=== PATIENT | female | born 1945 | race Caucasian/White ===

== ENCOUNTER → 2023-05-16 12:33 | Outpatient (REF) | payer MEDICARE, OTHER, SELFPAY ==
[2023-05-16 14:40] LABS: Hematocrit 41.7 % (37.0-47.0); Hemoglobin 14.3 g/dL (12.0-16.0); Mean Corp Hgb Conc. 34.3 g/dL (33.0-37.0); Mean Corpuscular Hgb 30.7 pg (27.0-31.0); Mean Corpuscular Volume 89.5 fL (81.0-99.0); Mean Platelet Volume 9.9 fL (7.4-10.4); Platelet Count 226 10^3/uL (130-400); Red Blood Cell Count 4.66 10^6/uL (4.20-5.40); Red Cell Dist. Width 13.4 % (11.5-14.5); White Blood Cell Count 8.4 10^3/uL (4.8-10.8)
== END ==
LOC: SDSPAT 12:33
PROVIDERS: ATTENDING PHYSICIAN Specialist; FAMILY PHYSICIAN Family Medicine; OTHER PHYSICIAN Internal Medicine Cardiovascular Disease
DX: Z01.818 Encounter for other preprocedural examination (principal)
CPT/HCPCS: 36415; 85027

== ENCOUNTER 2023-05-26 06:33 | Day surgery (SDC) | payer MEDICARE, OTHER, SELFPAY ==
[2023-05-16 12:51] VITALS: BMI 25.5
[2023-05-26] VITALS (9 sets, daily range): BP systolic 129–149; BP diastolic 60–78; BMI 25.5
[2023-05-26] MEDS: NORMOSOL-R 1000 IV (10:38)
[2023-05-26] MEDS: TYLENOL 1000 MG PO (10:51)
[2023-05-26] MEDS: CELEBREX 200 MG PO (10:51)
== END 2023-05-26 14:24 | disposition home or self-care (01) ==
LOC: SDS 06:33
PROVIDERS: ATTENDING PHYSICIAN Specialist; FAMILY PHYSICIAN Family Medicine
DX: M75.111 Incomplete rotator cuff tear or rupture of right shoulder, not specified as traumatic (principal)
CPT/HCPCS: 29823; C1713

== ENCOUNTER → 2023-11-29 06:29 | Day surgery (SDC) | payer MEDICARE, OTHER, SELFPAY | LOC: GI 06:29 | PROVIDERS: ATTENDING PHYSICIAN Internal Medicine | DX: K64.9 Unspecified hemorrhoids (principal); Z86.010 Personal history of colon polyps; K57.30 Diverticulosis of large intestine without perforation or abscess without bleeding; D12.0 Benign neoplasm of cecum | CPT/HCPCS: 45380; 88305 ==

== ENCOUNTER → 2023-12-13 11:28 | Outpatient (REF) | payer MEDICARE, OTHER, SELFPAY | LOC: WDC 11:28 | PROVIDERS: ATTENDING PHYSICIAN Family Medicine | DX: Z12.31 Encounter for screening mammogram for malignant neoplasm of breast (principal) | CPT/HCPCS: 77063; 77067 ==

== ENCOUNTER → 2024-10-17 13:27 | Outpatient (REF) | payer MEDICARE, OTHER, SELFPAY | LOC: RCS 13:27 | PROVIDERS: ATTENDING PHYSICIAN Internal Medicine Cardiovascular Disease; FAMILY PHYSICIAN Family Medicine | DX: I48.0 Paroxysmal atrial fibrillation (principal) | CPT/HCPCS: 93306 ==

== ENCOUNTER → 2025-01-02 10:44 | Outpatient (REF) | payer MEDICARE, OTHER, SELFPAY | LOC: WDC 10:44 | PROVIDERS: ATTENDING PHYSICIAN Family Medicine | DX: Z12.31 Encounter for screening mammogram for malignant neoplasm of breast (principal) | CPT/HCPCS: 77063; 77067 ==